=== PATIENT | female | born 1990 | race Caucasian/White ===

== ENCOUNTER 2016-05-07 11:25 | Emergency (ER) | payer OTHER ==
[~2016-05-07] VITALS: Wt 79.0 kg
[~2016-05-07 11:25] MED LIST: ALBU8.5H5 IH; AMO500 PO; AZIT500T3 PO; BACTDS PO; BENZ100C70 PO; CEPH-443 PO; CIPR500T4 PO; IBUP-1542 PO; PRED20TA PO; PRENAT PO; PROM6.25 PO
[2016-05-07] MEDS ORDERED: ONDANSETRON (ODT) 4 MG TAB ODT STA (12:45)
[2016-05-07] MEDS ORDERED: HYDROCODONE/APAP (5/325) TAB PO ONE (13:00)
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
--- NOTE | 2016-05-07 14:42 | RADRPT ---
PROCEDURE: XR Chest. CLINICAL INDICATION: Chest wall pain. TECHNIQUE: Single frontal view of the chest was obtained COMPARISON: No. FINDINGS: The soft tissues are normal. The bony elements are normal. The heart, left side aorta, cardiomedias tinal silhouette, pulmonary vasculature and hilar structures are normal. The lungs are clear. The co stophrenic angles are normal. There has been no interval change compared to the prior study. IMPRESSION: 1. Stable chest x-ray with no evidence of active cardiopulmonary disease. RPTAT:AAJJ Physician Starla Date Time Electronically viewed and signed by Physician Starla on 05/07/2016 14:42 /
[2016-05-07] MEDS ORDERED: HYDR-902 PO (14:56)
[2016-05-07] MEDS ORDERED: NAPR-260 PO (14:56)
[2016-05-07 15:10] VITALS: BP 118/75; PULSE 76; RESP 18; TEMP 97.4
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
== END 2016-05-07 15:11 | disposition home or self-care (01) ==
LOC: FTE 11:25
DX: S29.9XXA Unspecified injury of thorax, initial encounter (principal); R51 Headache; V49.40XA Driver injured in collision with unspecified motor vehicles in traffic accident, initial encounter
CPT/HCPCS: 70450; 71010; Z7502; Z7610

== ENCOUNTER 2016-05-11 17:33 | Emergency (ER) | payer OTHER ==
[~2016-05-11] VITALS: Wt 100.0 kg
[~2016-05-11 17:33] MED LIST changes: +HYDR-902 PO; +NAPR-260 PO
[2016-05-11] MEDS ORDERED: IBUPROFEN 800 MG TAB PO ONE (20:00)
--- NOTE | 2016-05-11 20:41 | RADRPT ---
PROCEDURE: XR left Ankle. CLINICAL INDICATION: Left ankle injury and pain. TECHNIQUE: AP, oblique and lateral views of the left ankle were performed. COMPARISON: None. FINDINGS: No fracture or dislocation. The bones are normal mineralization without cortical destruction. The talar dome is intact and ankle joint mortise well maintained. The remaining bones of the foot an d ankle are unremarkable. Marked lateral periarticular soft tissue swelling. IMPRESSION: 1. Marked lateral periarticular soft tissue swelling. No fracture or dislocation. RPTAT:AAJJ Ld Parker Physician Date Time Electronically viewed and signed by Physician Joe on 05/11/2016 20:41 CRAIG/
--- NOTE | 2016-05-11 20:42 | RADRPT ---
PROCEDURE: XR Foot. CLINICAL INDICATION: Left foot pain. TECHNIQUE: AP, lateral and oblique views of the right foot was obtained. The images were reviewed on a PACS workstation. COMPARISON: None. FINDINGS: The bones of the foot appear intact, with no evidence of fracture, dislocation, or subluxation. The joint spaces are preserved. Bone mineralization is normal. No significant soft tissue swelling is se en. IMPRESSION: 1. No fracture, dislocation, or soft tissue abnormality. RPTAT:AAJJ Physician Joe Date Time Electronically viewed and signed by Physician Joe on 05/11/2016 20:42 CRAIG/
[2016-05-11] MEDS ORDERED: IBUP-1542 PO (22:05)
[2016-05-11 22:17] VITALS: BP 115/68; PULSE 88; RESP 18; TEMP 97.8
--- NOTE | 2016-05-11 22:22 | ERD ---
ER Documentation Chief Complaint Date/Time DATE: 05/11/16 TIME: 22:10 Chief Complaint left ankle pain and swelling from a fall last night. no deformity HPI 25-year-old female with no significant past medical history presents the ED complaining of left ankle injury she sustained last night from a trip and fall. States that she accidentally inverted her foot as she was typing outside of the door. Describes pain as achy and rates it a 7 out of 10. States that she has not taking any pain medications. Reports that her ankle started to swell up however she has been applying ice frequently. Denies any loss of sensation, loss of range of motion, abdominal pain, fever, chills, shortness of breath. Denies any head or neck injuries. Denies any loss of consciousness. ROS All systems reviewed and are negative except as per history of present illness. Medications Home Meds Active Scripts Ibuprofen* (Motrin*) 600 Mg Tab, 600 MG PO Q6, #30 TAB Prov:IAN LOCO PA-C 05/11/16 Naproxen* (Naprosyn*) 500 Mg Tablet, 500 MG PO BID Y for PAIN AND/OR INFLAMMATION, #20 TAB Prov:DORYS SMITH PA-C 05/07/16 Hydrocodone/Acetaminophen (Kincaid 10-325 Tablet) 1 Each Tablet, 1 TAB PO Q6H Y for PAIN, #7 TAB Prov:DORYS SMITH PA-C 05/07/16 Multivit/Min/Fol Ac/Iron/Pren* ( S*) 1 Tab Tab, 1 TAB PO DAILY for 30 Days, TAB Prov:CONCEPCION CANELA NP 03/07/15 Promethazine w/Codeine* (Phenergan w/Codeine* Syrup) 5 Ml Syrup, 5 ML PO Q4H Y for COUGH for 5 Days, ML 6 oz Prov:ADRIEL LIU MD 01/23/15 Ibuprofen* (Motrin*) 600 Mg Tab, 600 MG PO Q6H Y for PAIN, #14 TAB Prov:ADRIEL LIU MD 01/23/15 Amoxicillin* (Amoxicillin*) 500 Mg Cap, 500 MG PO TID for 10 Days, CAP Prov:ADRIEL LIU MD 01/23/15 Prednisone* (Prednisone*) 20 Mg Tab, 40 MG PO DAILY for 4 Days, TAB Prov:ADRIEL LIU MD 01/23/15 Sulfamethoxazole-Trimethoprim* (Bactrim* DS) 800-160 Mg Tab, 1 TAB PO BID for 7 Days, TAB Prov:MICHEL BERMAN. 10/26/14 Cephalexin* (Keflex*) 500 Mg Capsule, 500 MG PO QID for 7 Days, CAP Prov:MICHEL BERMAN. 10/26/14 Ciprofloxacin Hcl* (Ciprofloxacin Hcl*) 500 Mg Tablet, 500 MG PO BID for 10 Days , TAB Prov:MICHEL BERMAN. 09/25/14 Prednisone* (Prednisone*) 20 Mg Tab, 40 MG PO DAILY for 4 Days, TAB Prov:KEYONNA SMART MD 09/03/14 Benzonatate* (Tessalon Perle*) 100 Mg Capsule, 100 MG PO Q8H Y for COUGH, #20 CAP Prov:KEYONNA SMART MD 09/03/14 Albuterol Sulfate* (Albuterol Sulfate* HFA) 8.5 Gm Hfa.aer.ad, 2 PUFF IH Q4H Y for WHEEZING AND SOB, #1 EA Prov:KEYONNA SMART MD 09/03/14 Azithromycin* (Zithromax*) 500 Mg Tablet, 500 MG PO DAILY for 3 Days, TAB Prov:KEYONNA SMART MD 09/03/14 Allergies Allergies: Coded Allergies: No Known Allergy (Unverified , 01/23/15) PMhx/Soc Medical and Surgical Hx: pt denies Medical Hx History of Surgery: Yes ( x 1) Anesthesia Reaction: No Hx Neurological Disorder: No Hx Respiratory Disorders: No Hx Cardiac Disorders: No Hx Psychiatric Problems: No Hx Miscellaneous Medical Probl: No Hx Alcohol Use: No Hx Substance Use: No Hx Tobacco Use: No Smoking Status: Never smoker Physical Exam Vitals Temp 98.4 Pulse 79 SBP 124 DBP 68 Resp 21 O2 Sat 99 Pain Intensity 8 Physical Exam Const: [id number], well-nourished. In no acute distress. Head: Atraumatic, normocephalic Eyes: Normal Conjunctiva without injection ENT: Normal external ear, nose and mouth. Neck: Full range of motion. No meningismus. Resp: Clear to auscultation bilaterally. No wheezing, rhonchi, rales, or crackles. No accessory muscle use. No retractions. Cardio: Regular rate and rhythm, no murmurs Skin: No petechiae or rashes Back: No midline tenderness. No CVA tenderness. Ext: No cyanosis, or edema. Tenderness to palpation of the left lateral malleolus and fifth metatarsal. No warmth to touch. No erythema. Slight edema noted. Full range of motion noted with flexion, extension, inversion and eversion of the foot. Pain with movement. Cap refill less than 2 seconds. Distal pulses intact bilaterally. Neur: Awake and alert. Normal gait and coordination. Muscle strength 5/5. Sensation intact bilaterally. Psych: Normal Mood and Affect Results 24 hrs Current Medications Medications (Trade) Dose Ordered Sig/Javier Route PRN Reason Start Time Stop Time Status Last Admin Dose Admin Ibuprofen (Motrin) 800 mg ONCE ONCE PO 05/11/16 20:00 05/11/16 20:01 DC 05/11/16 20:00 Procedures/MDM This is a 25-year-old female with no significant past medical history presents the ED complaining of a left ankle injury. Patient is afebrile and nontoxic- appearing. Patient has normal vital signs. Based on [place]'s Ankle Rules, patient qualifies for an xray - a left ankle and foot x-ray was ordered to further evaluate patient. PROCEDURE: XR left Ankle. CLINICAL INDICATION: Left ankle injury and pain. TECHNIQUE: AP, oblique and lateral views of the left ankle were performed. COMPARISON: None. FINDINGS: No fracture or dislocation. The bones are normal mineralization without cortical destruction. The talar dome is intact and ankle joint mortise well maintained. The remaining bones of the foot and ankle are unremarkable. Marked lateral periarticular soft tissue swelling. IMPRESSION: 1. Marked lateral periarticular soft tissue swelling. No fracture or dislocation. PROCEDURE: XR Foot. CLINICAL INDICATION: Left foot pain. TECHNIQUE: AP, lateral and oblique views of the right foot was obtained. The images were reviewed on a PACS workstation. COMPARISON: None. FINDINGS: The bones of the foot appear intact, with no evidence of fracture, dislocation, or subluxation. The joint spaces are preserved. Bone mineralization is normal. No significant soft tissue swelling is seen. IMPRESSION: 1. No fracture, dislocation, or soft tissue abnormality. Patient is placed in a Gonzalo wrap of the left ankle. Splint Assessment: Neurovascularly intact pre and Gonzalo wrap placement with good fit. Patient likely sustained a left ankle sprain. Patient's extremity symptoms have stabilized while they have been evaluated in the department and are appropriate for outpatient follow up. No evidence of fractures, dislocations, compartment syndrome, neurologic injury, vascular injury, open joint, open fracture, tendon laceration, septic arthritis, osteomyelitis, DVT, foreign body , or other emergent conditions. Discharge medications: Ibuprofen Follow up with primary care physician in 1-2 days. Patient was instructed to be cleared by her primary care physician to return back to work. Instructed patient to return to the ED sooner for any worsening symptoms. Patient's questions were answered. Patient understood and agreed with discharge plan. Patient discharged stable. Departure Diagnosis: Primary Impression: Left ankle sprain Encounter type: initial encounter Involved ligament of ankle: unspecified ligament Qualified Code: S93.402A - Sprain of left ankle, unspecified ligament , initial encounter Condition: Stable Patient Instructions: Treating Ankle Sprains, Self-Care for Strains and Sprains Referrals: [facility] YOU HAVE RECEIVED A MEDICAL SCREENING EXAM AND THE RESULTS INDICATE THAT YOU DO NOT HAVE A CONDITION THAT REQUIRES URGENT TREATMENT IN THE EMERGENCY DEPARTMENT. FURTHER EVALUATION AND TREATMENT OF YOUR CONDITION CAN WAIT UNTIL YOU ARE SEEN IN YOUR DOCTORS OFFICE WITHIN THE NEXT 1-2 DAYS. IT IS YOUR RESPONSIBILITY TO MAKE AN APPOINTMENT FOR FOLOW-UP CARE. IF YOU HAVE A PRIMARY DOCTOR --you should call your primary doctor and schedule an appointment IF YOU DO NOT HAVE A PRIMARY DOCTOR YOU CAN CALL OUR PHYSICIAN REFERRAL HOTLINE AT IF YOU CAN NOT AFFORD TO SEE A PHYSICIAN YOU CAN CHOSE FROM THE FOLLOWING [facility] [address] [facility] [address] [facility] [address] [facility] [address] [facility] [address] [facility]. [facility]. [address] [facility] YOU HAVE RECEIVED A MEDICAL SCREENING EXAM AND THE RESULTS INDICATE THAT YOU DO NOT HAVE A CONDITION THAT REQUIRES URGENT TREATMENT IN THE EMERGENCY DEPARTMENT. FURTHER EVALUATION AND TREATMENT OF YOUR CONDITION CAN WAIT UNTIL YOU ARE SEEN IN YOUR DOCTORS OFFICE WITHIN THE NEXT 1-2 DAYS. IT IS YOUR RESPONSIBILITY TO MAKE AN APPOINTMENT FOR FOLOW-UP CARE. IF YOU HAVE A PRIMARY DOCTOR --you should call your primary doctor and schedule and appointment IF YOU DO NOT HAVE A PRIMARY DOCTOR YOU CAN CALL OUR PHYSICIAN REFERRAL HOTLINE AT . IF YOU CAN NOT AFFORD TO SEE A PHYSICIAN YOU CAN CHOSE FROM THE FOLLOWING [facility] INSTITUTIONS: [facility] [address] [place] [address] [facility] [address] [place] [address] [facility] [address] [place] [address] [facility] 7 a.m.- 11 p.m. Every Day of the Week NO APPOINTMENT OR AUTHORIZATION NEEDED [facility] Hours: Mon-Fri 9:00 AM - 5:00 PM Additional Instructions: Rest, ice, compression, elevation recommended. FOLLOW UP WITH YOUR PRIMARY CARE PHYSICIAN TOMORROW.Return to this facility if you are not improving as expected. IAN LOCO PA-C May 11, 2016 22:20
== END 2016-05-11 22:18 | disposition home or self-care (01) ==
LOC: FTE 17:33
DX: S93.402A Sprain of unspecified ligament of left ankle, initial encounter (principal); W01.0XXA Fall on same level from slipping, tripping and stumbling without subsequent striking against object, initial encounter; Y92.89 Other specified places as the place of occurrence of the external cause
CPT/HCPCS: 73610

== ENCOUNTER 2017-04-19 21:36 | Emergency (ER) | END 2017-04-20 04:47 | disposition home or self-care (01) ==